=== PATIENT | female | born 1940 | race Caucasian/White ===

== ENCOUNTER → 2016-06-29 16:45 | Outpatient (CLI) | payer MEDICARE, OTHER | END | disposition home or self-care (01) | LOC: D.MAMMO 13:00 | DX: Z12.31 Encounter for screening mammogram for malignant neoplasm of breast (principal) ==

== ENCOUNTER → 2017-06-28 08:38 | Outpatient (CLI) | payer MEDICARE, OTHER | END | disposition home or self-care (01) | LOC: D.RAD 08:38 | DX: R13.10 Dysphagia, unspecified (principal) ==

== ENCOUNTER → 2019-08-24 08:30 | Outpatient (CLI) | payer MEDICARE, OTHER | END | disposition home or self-care (01) | LOC: D.HCCECHO 08:30 | PROVIDERS: ATTEND Internal Medicine Cardiovascular Disease | DX: R06.09 Other forms of dyspnea (principal) ==

== ENCOUNTER 2019-09-12 06:21 | Outpatient (CLI) | payer MEDICARE, OTHER ==
[~2019-09-12] VITALS: Ht 165.1 cm; Wt 89.1 kg
--- NOTE | ~2019-09-12 | HEMODYNAMI ---
PATIENT:ASAF CASE MEDICAL RECORD: [id number] : 36 LOCATION:[facility] ADMISSION DATE: 09/12/19 Generatedon:09/12/20199:21 Patient name: ASAF CASE Patient #: [id number] SSN: [id number] : 1940 Date of study: 09/12/2019 Page: Of Hemodynamic Procedure Report Patient Data Patient Demographics Procedure consent was obtained First Name: ASAF Gender: Female Last Name: MANPREET : 1940 [facility] Initial: BHUPINDER Age: 79 year(s) Patient #: [id number] Race: SSN: [id number] Additional ID: [id number] Contact details Address: [address] [place] [address] State: [place] City: [facility] Zip code: [address] Past Medical History Allergies Allergen Reaction Date Comments Reported Other allergy 09/12/2019 SULFA Admission Admission Data Admission Date: 09/12/2019 Admission Time: 6:21 Arrival Date: 09/12/2019 Arrival Time: 8:30 Admit Source: Other Insurance Payor: Medicare HIC #: [id number] Height (in.): 65 BSA: 1.97 (m2) Height (cm.): 165.1 BMI: 33.11 (kg/m2) Weight (lbs.): 199 Weight (kg.): 90.26 Lab Results Lab Result Date: 09/12/2019 Lab Result Time: 0:00 Biochemistry Name Units Result Min Max BUN mg/dl 13 --(--*-)-- 7 18 Creatinine mg/dl 1.1 --(--*-)-- 0.6 1.3 eGFR ml/min 50 *-(----)-- 90 120 NONAFRICAN CBC Name Units Result Min Max Hematocrit % 39.9 -*(----)-- 42 54 Hemoglobin g/dl 12.9 -*(----)-- 13.5 17.5 Procedure Procedure Types Cath Procedure Diagnostic Procedure [facility] w/Coronaries Sedation Charges Moderate Sedation up to 15 minutes Procedure Description Procedure Date Procedure Date: 09/12/2019 Procedure Start Time: 8:55 Procedure End Time: 9:08 Procedure Staff Name Function Inna Winters RT Scrub David Mackay MD Performing Physician Yvette Lieberman RT Monitor Indication Angina Procedure Data Cath Procedure Fluoroscopy Diagnostic fluoroscopy Total fluoroscopy Time: 1.5 time: 1.5 min min Diagnostic fluoroscopy Total fluoroscopy dose: 344 dose: 344 mGy mGy Contrast Material Contrast Material Type Amount (ml) Isovue 370 55 Entry Location Entry Primary Successful Side Size Upsize Upsize Entry Closure Succes sful Closure Location (Fr) 1 (Fr) 2 (Fr) Remarks Device Remarks Femoral Right 5 Fr Exoseal artery Estimated blood loss: 5 ml Diagnostic catheters Device Type Used For End Catheter Placement MULTIPACK JL 4.0 5Fr Procedure catheter MULTIPACK 3DRC 5Fr Procedure catheter MULTIPACK Pigtail 5 Fr Procedure catheter Procedure Complications No complications Procedure Medications Medication Administration Route Dosage Oxygen etCO2 Nasal cannula 2 l/min Heparin Flush Bag added to field 2 bags (1000units/500ml NS) Lidocaine 2% added to field 20 0.9% NaCl I.V. 100 ml/hr Fentanyl I.V. 25 mcg Versed I.V. 0.5 mg Hemodynamics Rest BSA: 1.97 (m2) HGB: 12.9 (g/dl) O2 Consumption: Estimated: 187.93 (ml/min) O2 Co nsumption indexed: Estimated:95.4 (ml/min/m) Heart Rate: 85 (bpm) Pressure Samples Time Site Value (mmHg) Purpose Heart Use Rate(bpm) 9:03 LV 195/57,71 Snapshot 73 Gradients Valve Time Site Site Mean SEP/DFP Peak To Heart Use 1 2 (mmHg) (sec/min) Peak Rate (mmHg) (bpm) Aortic 9:04 LV AO 80 Snapshots Pre Cath Intra NCS Post Cath Vital Signs Time Heart Resp SPO2 etCO2 NIBP (mmHg) Rhythm Pain Sedation Rate (ipm) (%) (mmHg) Status Level (bpm) 8:45:48 72 14 96 0 131/62(98) NSR 0 (11) 10(A) , No pain 8:50:03 72 15 99 36.3 127/62(93) NSR 0 (11) 9(A) , No pain 8:54:17 77 16 100 39.2 131/67(110) NSR 0 (11) 9(A) , No pain 8:58:31 71 18 100 38.5 123/71(103) NSR 0 (11) 9(A) , No pain 9:03:34 80 13 100 37.8 141/72(110) NSR 0 (11) 9(A) , No pain 9:07:49 73 10 100 33.2 145/82(103) NSR 0 (11) 10(A) , No pain Medications Time Medication Route Dose Verified Delivered Reason Notes Effe ctiveness by by 8:32:06 Oxygen etCO2 2 Glory Glory Per Nasal l/min Adrianne Silver physician cannula RN RN 8:32:14 Heparin Flush added 2 Glory Glory used for Bag to bags Adrianne Silver procedure (1000units/500ml field RN RN NS) 8:32:24 Lidocaine 2% added 20ml Glory David for local to vial Adrianne Mackay MD anesthetic field RN 8:32:45 0.9% NaCl I.V. 100 Glory Glory for local ml/hr Adrianne Silver anesthetic RN RN 8:49:21 Fentanyl I.V. 25 David Glory for mcg Thompson Silver sedation RN 8:49:29 Versed I.V. 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 8:18:26 Time tracking: Regular hours (M-F 7:00 - 5:00) 8:18:26 Glory Silver RN sent for patient. Start room use. 8:18:30 Plan of Care:Hemodynamics will remain stable., Cardiac rhythm will remain stable., Comfort level will be maintained., Respiratory function will remain adequate., Patient/ family verbilizes understanding of procedure., Procedure tolerated without complication., Recovers from procedure without complications.. 8:23:55 Patient received from Pre/Post Procedure Room to CCL 2 Alert and oriented. Tansferred to table in Supine position. 8:23:57 Warm blankets applied, and yesenia hugger turned on for patient comfort. 8:23:58 Signed procedure consent form obtained from patient. 8:23:59 Correct patient and procedure confirmed by team. 8:24:00 ECG and BP/O2 sat monitors applied to patient. 8:31:22 Vital chart was started 8::23 Full Disclosure recording started 8:31:24 Baseline sample Acquired. 8:31:32 H&P Date Dictated: 08/14/2019 Within 30 days and on chart.. 8:31:33 Pre-op teaching completed and patient verbalized understanding. 8:31:33 Pre-procedure instructions explained to patient. 8:31:36 Family in waiting room. 8:31:38 Patient NPO since Midnight. 8:31:53 Patient allergic to Other allergySULFA 8::59 Is the patient allergic to Iodine/contrast media? No. 8:32:00 Was the patient premedicated? No 8:32:01 Is patient on blood thinner?No 8:32:04 Patient diabetic? Yes. 8:32:06 Oxygen 2 l/min etCO2 Nasal cannula was administered by Glory Silver RN; Per physician; Verbal order read back and verified. 8:32:14 Heparin Flush Bag (1000units/500ml NS) 2 bags added to field was administered by Glory Silver RN; used for procedure; Verbal order read back and verified. 8:32:24 Lidocaine 2% 20ml vial added to field was administered by David Mackay MD; for local anesthetic; Verbal order read back and verified. 8:32:45 0.9% NaCl 100 ml/hr I.V. was administered by Glory Silver RN; for local anesthetic; Verbal order read back and verified. 8:32:57 If diabetic: On Metformin? No 8:32:59 Patient not . Patient is over age 55. 8:33:00 ----Pre-sedation anethsthesia assessment.---- 8:33:04 Previous problem with sedation/anesthesia? No ? 8:33:05 Snore? Yes 8:33:06 Sleep apnea? No 8:33:07 Deviated septum? No 8:33:08 Opens mouth fully? Yes 8:33:09 Sticks out tongue? Yes 8:33:12 Airway obstruction? No ? 8:33:14 Dentures? No ? 8:33:20 Modified Felix's test Ulnar > 7 seconds. 8:33:27 IV patent on arrival in left antecubital with 0.9% NaCl at KVO. 8:33:46 Stress Test: yes; abnormal INFERIOR AND APICAL 8:33:51 Right groin area was prepped with chlora-prep and draped in sterile fashion 8:33:52 Alarms reviewed by R. N. 8:33:53 Sharps counted by scrub and verified by R.N. 8:34:02 Rhythm: sinus rhythm 8:34:53 Use device set Femoral Dx 8:34:54 ACIST Syringe (76078) opened to sterile field. 8:34:55 Medline Cath Pack ([id number]) opened to sterile field. 8:34:55 Bag Decanter (2002S) opened to sterile field. 8:34:56 ACIST Hand Control (65397) opened to sterile field. 8:34:57 ACIST Manifold (54096) opened to sterile field. 8:34:58 DIAGNOSTIC Multipack 5Fr catheter set ([id number]) opened to sterile field. 8:34:59 EMERALD Guide Wire (215-674) opened to sterile field. 8:34:59 SHEATH 5FR Tyler (HNF392) opened to sterile field. 8:39:50 Lab results completed and on chart. 8:46:38 Final Timeout: patient, procedure, and site verified with staff and physician. All members of the team are in agreement. 8:46:38 --------ALL STOP TIME OUT------ 8:46:40 Right groin site verified by team. 8:46:43 Fire Safety Assessment: A--An alcohol-based skin anteseptic being used preoperatively., C--Open oxygen or nitrous oxide is being used., D--An ESU, laser, or fiber-optic light is being used. 8:46:46 Physical assessment completed. ASA score P 2 - A patient with mild systemic disease as per David Mackay MD. 8:46:49 3a) 45-59 Moderately reduced kidney function. 8:47:14 Maximum allowable contrast dose (3.7 X eGFR X 0.75)139 ml. 8:47:18 Sedation plan: IV Moderate Sedation Medication:Versed, Fentanyl 8:49:21 Fentanyl 25 mcg I.V. was administered by Glory Silver RN; for sedation; Verbal order read back and verified. 8:49:29 Versed 0.5 mg I.V. was administered by Glory Silver RN; for sedation; Verbal order read back and verified. 8:50:08 Lab Result : eGFR NONAFRICAN 50 ml/min 8:50:08 Lab Result : Creatinine 1.1 mg/dl 8:50:08 Lab Result : BUN 13 mg/dl 8:54:55 Procedure started. 8:55:27 Lab Result : Hematocrit 39.9 % 8:55:27 Lab Result : Hemoglobin 12.9 g/dl 8:55:37 Local anesthetic to right femoral artery with Lidocaine 2% by David Mackay MD.INITIAL ACCESS ONLY 8:57:14 A 5 Fr sheath was inserted into the Right Femoral artery 8:58:02 A MULTIPACK JL 4.0 5Fr catheter was advanced over the wire and used for Procedure. 8:59:01 LCA angiography performed. 8:59:04 Injector settings: Ml/sec: 3, Volume: 6, 9:00:42 Catheter exchanged over wire. 9:01:15 A MULTIPACK 3DRC 5Fr catheter was advanced over the wire and used for Procedure. 9:02:04 RCA angiography performed. 9:02:08 Injector settings: Ml/sec: 3, Volume: 6, 9:02:23 ACCDominant side:Left 9:02:28 Catheter exchanged over wire. 9:03:21 A MULTIPACK Pigtail 5 Fr catheter was advanced over the wire and used for Procedure. 9:03:31 LV gram done using SARAVIA 9:03:59 LV hemodynamics recorded. 9:04:03 Injector settings: Ml/sec: 5, Volume: 15, 9:04:19 EF : 50 % 9:04:38 Catheter removed. 9:04:50 EXOSEAL 5Fr (EX500) opened to sterile field. 9:05:39 Sheath removed intact; hemostasis achieved with Exoseal to the Right Femoral artery. 9:05:44 Fluoroscopy time 01.50 minutes. 9:05:48 Fluoroscopy dose: 344 mGy 9:05:48 Flurop Dose total: 344 9:05:52 Dose Area Product 72746 mGy/cm. 9:05:53 Procedure ended.(Physican Out) 9:06:11 Contrast amount:Isovue 370 55ml. 9:06:14 Maximum allowable dose exceeded? No. 9:06:15 Sharps counted by scrub and verified by R.N. 9:06:20 Post-op/insertion site Right Femoral artery dressed using a 4 x 4 and Tegaderm. 9:06:24 Post right femoral artery:stable, soft, clean and dry 9:06:26 Post Procedure Pulses reassessed and unchanged 9:06:30 Post-procedure physical assessment completed. ASA score P 2 - A patient with mild systemic disease as per David Mackay MD. 9:06:37 Post procedure rhythm: unchanged. 9:06:40 Estimated blood loss: 5 ml 9:06:41 Post procedure instruction explained to patient.Patient verbalizes understanding. 9:06:42 Patient needs reinforcement of post procedure teaching. 9:06:47 Procedure type changed to Cath procedure, Diagnostic procedure, LHC, C w/Coronaries, Sedation Charges, Moderate Sedation up to 15 minutes 9:07:03 Procedure and supply charges have been captured, reviewed, submitted and are correct. 9:07:07 Procedure Complication : No complications 9:07:09 Vital chart was stopped 9:07:11 [facility] Findings: mild to moderate CAD (<70%) 9:07:15 Operative report dictated upon procedure completion. 9:07:16 See physician's report for complete and final results. 9:07:17 Report given to Pre/Post Procedure Room. 9:07:21 Patient transfered to Pre/Post Procedure Room with Stretcher. 9:08:50 Full Disclosure recording stopped 9:08:50 Procedure ended. 9:09:39 End room use (Document Last) Device Usage Item Name Manufacture Quantity Catalog Hospital Part Current Minimal L ot# / Number Charge Number Stock Stock Serial# Code ACIST Acist 1 [id number] [id number] 727370 20 Syringe INBEP (14337) Systems Inc Bag Microtek 1 975799 81769 037288 5 Decanter INBEP Inc. () Medline Medline 1 [id number] 173709 49071 246319 5 Cath Pack ([id number]) ACIST Hand Acist 1 25992 989455 506458 715377 5 Control Medical (08005) Systems Inc ACIST Acist 1 92943 340523 221145 559721 5 Manifold Medical (02425) Systems Inc DIAGNOSTIC Cardinal 1 [id number] 943175 55330 337426 30 Multipack Health 5Fr catheter set (WR3854) SHEATH 5FR Terumo 1 WNV734 223612 513318 998124 5 Tyler (IVL356) EMERALD Cardinal 1 502-381 308241 991623 714435 5 Guide Wire Health (502-473) MULTIPACK Cardinal 1 034086 5 JL 4.0 5Fr Health catheter MULTIPACK Cardinal 1 [id number] 5 3DRC 5Fr Health catheter MULTIPACK Cardinal 1 [id number] 5 Pigtail 5 Health Fr catheter EXOSEAL 5Fr Cardinal 1 EX500 104768 371807 [id number] 10 (EX500) Health Signature [employer]it [place] Stage Time Signature Unsigned Intra-Procedure 09/12/2019 Yvette Lieberman 9:09:50 AM RT(R) Intra-Procedure 09/12/2019 David Walker RN 9:13:47 AM 09/12/2019 9:17:40 AM Intra-Procedure 09/12/2019 David Mackay MD 9:20:55 AM Signatures Performing Physician : Signature : David Mackay MD Date : Time : Monitor : Yvette Lieberman Signature : RT Date : Time : [facility] [address] [place] [address]
[2019-09-12] MEDS ORDERED: DIOVAN160 MG PO (07:22)
[2019-09-12] MEDS ORDERED: CALAN SR180 MG PO (07:22)
[2019-09-12] MEDS ORDERED: LIPITOR40 MG PO (07:22)
[2019-09-12 07:35] VITALS: BP 149/64; Ht 165.1 cm; Wt 89.1 kg
[2019-09-12 08:45] LABS: BASOPHILS 0.2 % (0-2); HEMATOCRIT 39.9 % (36.0-48.0); HEMOGLOBIN 12.9 g/dL (12-16); IMMATURE GRANULOCYTES 0.2 % (0-5); LYMPHOCYTES 37.4 % (15-50); MCH 29.3 pg (26.0-34.0); MCHC 32.3 g/dL (31.0-37.0); MCV 90.7 fL (80.0-100.0); MEAN PLATELET VOLUME 11.1 fL (7.4-10.4); MONOCYTES 10.5 % (2-11); NEUTROPHILS 49.7 % (40-80); PLATELET COUNT 295 10x3/uL (130-400); RDW 13.4 % (11.5-14.5); WBC 4.6 10x3/uL (4.8-10.8)
[2019-09-12 08:46] LABS: ANION GAP 9.3 mmol/L (8-16); CALCIUM 8.7 mg/dL (8.5-10.1); CARBON DIOXIDE 29.9 mmol/L (21.0-32.0); CHOL - HDL RATIO 2.3 ratio (2.3-4.1); CREATININE - SERUM 1.1 mg/dL (0.6-1.3); POTASSIUM - SERUM 4.2 mmol/L (3.5-5.1)
--- NOTE | 2019-09-12 09:23 | NUR ---
PT ARRIVED BY STRETCHER. PLACED ON MONITORS. ASSESSMENT COMPLETED. VSS AT THIS TIME. CALL LIGHT WITHIN REACH. FRIEND AT BEDSIDE.
--- NOTE | 2019-09-12 09:37 | NUR ---
PT RESTING COMFORTABLY. VSS. RIGHT GROIN DRESSING C/D/I. NO S/S OF HEMATOMA NOTED. CALL LIGHT WITHIN REACH. VSS AT THIS TIME. FRIEND AT BEDSIDE.
--- NOTE | 2019-09-12 10:07 | NUR ---
PT RESTING COMFORTABLY. RIGHT GROIN DRESSING C/D/I. NO S/S OF HEMATOMA NOTED. CALL LIGHT WITHIN REACH. FRIEND AT BEDSIDE. NO NEEDS AT THIS TIME. DENIES NAUSEA/PAIN.
--- NOTE | 2019-09-12 10:40 | NUR ---
RIGHT GROIN DRESSING C/D/I. NO S/S OF HEMATOMA NOTED. HEAD OF BED INC TO 30 DEGREES. TOLERATED WELL. VSS. SET UP WITH SANDWICH TRAY AND DRINK. DENIES NAUSEA/PAIN. CALL LIGHT WITHIN REACH. FRIEND AT BEDSIDE.
--- NOTE | 2019-09-12 11:30 | NUR ---
RIGHT GROIN DRESSING C/D/I. NO S/S OF HEMATOMA NOTED. PIV D/C'D WITH CATH TIP INTACT. TOLERATED WELL. PT INSTRUCTED TO GET UP AND DRESSED AT THIS TIME. FRIEND AT BEDSIDE TO ASSIST.
--- NOTE | 2019-09-12 11:40 | NUR ---
PT AMBULATED TO RESTROOM. VOIDED WITHOUT DIFFICULTY. STEADY GAIT NOTED.
--- NOTE | 2019-09-12 11:45 | NUR ---
DISCUSSED DISCHARGE INSTRUCTIONS WITH PT. SHE VOICED UNDERSTANDING. RIGHT GROIN DRESSING C/D/I. NO S/S OF HEMATOMA NOTED.
--- NOTE | 2019-09-12 11:55 | NUR ---
PT TAKEN DOWN TO VEHICLE BY WHEELCHAIR. NO S/S OF DISTRESS NOTED. ALL BELONGINGS AND PAPERWORK IN HAND.
== END 2019-09-12 11:55 | disposition home or self-care (01) ==
LOC: D.CATH 06:21
PROVIDERS: ATTEND Internal Medicine Cardiovascular Disease
DX: I25.119 Atherosclerotic heart disease of native coronary artery with unspecified angina pectoris (principal); R94.39 Abnormal result of other cardiovascular function study; E11.9 Type 2 diabetes mellitus without complications; I10 Essential (primary) hypertension; E78.5 Hyperlipidemia, unspecified; R06.09 Other forms of dyspnea; Z82.49 Family history of ischemic heart disease and other diseases of the circulatory system